=== PATIENT | female | born 1965 | race Caucasian/White ===

== ENCOUNTER 2019-03-14 08:57 | Inpatient (IN) ==
--- NOTE | 2019-02-08 12:02 | Anesthesiology Consultation ---
Date of Service February 08, 2019 Assessment & Plan (1) Encounter for pre-operative examination: - Check test AM DOS Chart Review Chart Review: Pending: Refer to Additional Notes / Consult section (pending p reop testing (labs, EKG, CXR)) and Patient seen in Pre Admission Testing Teaching & Discussion Pre-Anesthesia Teaching/Discussion Notes: Instructed NPO after midnight before surgery,except medications with 15 cc of water. Medication instructions provided according to the PAT guidelines. History Surgery Operation Date: 03/14/19 11:20 Proposed Procedures p Left Total Knee Arthroplasty - Dao Dobson MD Height/Weight Height: 5 ft 9 in Weight: 129.7 kg Allergies Allergy/AdvReac Type Severity Reaction Status Date / Time losartan Allergy Intermediate Rash Verified 02/05/19 15:41 Medications Home Medications Medication Instructions Recorded Confirmed Last Taken atorvastatin 10 mg PO HS 02/05/19 02/05/19 Unknown cholecalciferol (vitamin D3) 1,000 unit PO QAM 02/05/19 02/05/19 Unknown [Vitamin D3] diclofenac-misoprostol 1 tab PO TID PRN 02/05/19 02/05/19 Unknown famotidine 40 mg PO HS 02/05/19 02/05/19 Unknown hydrochlorothiazide 37.5 mg PO QAM 02/05/19 02/05/19 Unknown levothyroxine 75 mcg PO QAM 02/05/19 02/05/19 Unknown lisinopril 5 mg PO HS 02/05/19 02/05/19 Unknown potassium chloride 10 meq PO QAM 02/05/19 02/05/19 Unknown Past Medical History Medical History Deep vein thrombosis right leg s/p knee arthroscopy (2008)- AC x 6 months/no issues since Hyperlipidemia Hypertension Hypothyroidism Morbid obesity Osteoarthritis Pancreatitis hx 2010 prior to lap santos Exercise / Class Metabolic Activity II 4-5 Yardwork/Stairs/Walk up hill Past Family History Family History Other No family history of adverse response to anesthesia Past Surgical History Surgical History H/O partial thyroidectomy History of cholecystectomy History of colonoscopy History of dilatation and curettage History of esophagogastroduodenoscopy (EGD) History of tonsillectomy History of total knee replacement Right S/P right knee arthroscopy Past Anesthesia History No Hx of Anesthesia Complications and No Family Hx of Anesthesia Complications History of PONV No Hx of PONV and Hx of Motion Sickness (mild) Social History Smoking Status: Never smoker Do You Dip or Chew Tobacco: No Hx Alcohol Use: Yes Alcohol type: beer alcohol intake frequency: holidays/special occasions only Hx Substance Use: No substance use type: does not use Review of Systems Patient denies chest pain, shortness of breath, dyspnea on exertion, cough, wheezing, palpitations. Physical Exam Vital Signs VITALS BP 122/76 P 65 TEMP 98.0 SP02 96%RA RESP 20 PHYSICAL Full neck and c-spine range of motion. Full TMJ range of motion. TMD 4 finger breaths Mallampati Score 2 Dentition: intact Lungs: clear throughout to auscultation Cardiac: regular rate and rhythm, no murmurs noted Spine: normal Carotid arteries: negative bruit Extremities: no edema
--- NOTE | 2019-02-08 12:15 | PAT Medication Instructions ---
Medication Instructions Date of Service February 08, 2019 Home Medications Medications atorvastatin 10 mg PO HS 02/05/19 [History Confirmed 02/05/19] cholecalciferol (vitamin D3) [Vitamin D3] 1,000 unit PO QAM 02/05/19 [History Confirmed 02/05/19] diclofenac-misoprostol 1 tab PO TID PRN 02/05/19 [History Confirmed 02/05/19] famotidine 40 mg PO HS 02/05/19 [History Confirmed 02/05/19] hydrochlorothiazide 37.5 mg PO QAM 02/05/19 [History Confirmed 02/05/19] levothyroxine 75 mcg PO QAM 02/05/19 [History Confirmed 02/05/19] lisinopril 5 mg PO HS 02/05/19 [History Confirmed 02/05/19] potassium chloride 10 meq PO QAM 02/05/19 [History Confirmed 02/05/19] ASK your surgeon for instructions diclofenac-misoprostol 1 tab PO TID PRN 02/05/19 [History Confirmed 02/05/19] DO NOT take the morning of surgery cholecalciferol (vitamin D3) [Vitamin D3] 1,000 unit PO QAM 02/05/19 [History Confirmed 02/05/19] hydrochlorothiazide 37.5 mg PO QAM 02/05/19 [History Confirmed 02/05/19] potassium chloride 10 meq PO QAM 02/05/19 [History Confirmed 02/05/19] Take morning of surgery With a small sip of water, OTHERWISE NOTHING TO EAT OR DRINK AFTER MIDNIGHT: levothyroxine 75 mcg PO QAM 02/05/19 [History Confirmed 02/05/19] Take evening before surgery atorvastatin 10 mg PO HS 02/05/19 [History Confirmed 02/05/19] famotidine 40 mg PO HS 02/05/19 [History Confirmed 02/05/19] lisinopril 5 mg PO HS 02/05/19 [History Confirmed 02/05/19] Other Notes If you have any questions please call us at [phone] or [phone] or [phone] or [phone]
[2019-02-08 12:39] LABS: Basophils # (auto) 0.02 K/uL (0-0.2); Basophils % (auto) 0.2 %; Eosinophils # (auto) 0.39 K/uL (0-0.5); Eosinophils % (auto) 4.6 %; Hematocrit (blood only) 38.6 % (37-47); Hemoglobin 12.9 g/dL (12.0-16.0); Immature Granulocytes # (auto) 0.01 K/uL (0.00-0.02); Immature Granulocytes % (auto) 0.1 %; Lymphocytes # (auto) 2.11 K/uL (1.2-3.4); Mean Corpuscular Hemoglobin 29.3 pg (25-34); Mean Corpuscular Hgb Conc 33.4 g/dL (32-36); Mean Corpuscular Volume 87.7 fL (80-100); Mean Platelet Volume 10.3 fL (7.4-10.4); Monocytes # (auto) 0.66 K/uL (0.11-0.59); Monocytes % (auto) 7.8 %; Neutrophils # (auto) 5.26 K/uL (1.4-6.5); Neutrophils % (auto) 62.3 %; Platelet Count 251 K/uL (130-400); RDW Coefficient of Variation 13.9 % (11.5-14.5); White Blood Count 8.45 K/uL (4.8-10.8)
[2019-02-08 12:44] LABS: Appearance Urine Clear (Clear); Bacteria Urine Automated Negative (Negative); Bilirubin Urine Negative (Negative); Blood Urine Negative (Negative); Cast Urine Automated 0 /lpf (0-5); Color Urine Yellow; Epithelial Cell Urine Auto >30 /lpf (0-5); Glucose Urine UA Negative (Negative); Ketones Urine Negative (Negative); Leukocyte Esterase Urine Trace (Negative); Nitrite Urine Negative (Negative); Protein Urine Negative (Negative); RBC Urine Automated 0-4 /hpf (0-4); Specific Gravity Urine 1.017 (1.000-1.030); Urobilinogen Urine Negative (Negative); pH Urine 5.5 (4.5-7.5)
[2019-02-08 12:49] LABS: Partial Thromboplastin Ratio 0.9; Partial Thromboplastin Time 23.9 Seconds (21.0-31.0); Prothrombin Time 10.2 Seconds (9.0-12.0)
[2019-02-08 13:07] LABS: Estimated Average Glucose 137 mg/dl; Hemoglobin A1C 6.4 % (4.5-5.6)
--- NOTE | 2019-02-08 13:20 | XRay Report ---
TWO VIEW CHEST CLINICAL HISTORY: Preoperative examination. FINDINGS: PA and lateral chest radiographs are compared to study dated 07/18/2010. The heart is mildly enlarged. The pulmonary vasculature is noncongested. The lungs and pleural spaces are clear. There i s no pneumothorax. The skeletal structures are osteopenic. Degenerative changes noted throughout the thoracic spine. The bony thorax appears intact. Surgical clips are noted in the upper abdomen. IMPRESSION: No active disease in the chest. Electronically signed by: Jas Santana M.D. 02/08/2019 1:19 PM
[2019-02-08 14:32] LABS: Albumin Level 3.7 gm/dl (3.4-5.0); Calcium 9.5 mg/dl (8.5-10.1); Creatinine Clr Calc Pharmacy 103.3 ml/min; Est GFR (African American) 84.6; Potassium 4.1 mmol/L (3.5-5.1)
--- NOTE | 2019-03-13 22:46 | History and Physical Report ---
DATE OF ADMISSION: 03/14/2019 CHIEF COMPLAINT: Chronic left knee pain. HISTORY OF PRESENT ILLNESS: This is a 53-year-old female patient of Dr. Dobson'garett complaining of chronic left knee pain, longstanding, now progressively getting worse. The patient has failed conservative treatment including anti-inflammatories, the use of a brace. She has been diagnosed with end-stage osteoarthritis per clinical and radiographic exams. The patient has increased pain with weightbearing activities and her pain does interfere with her activities of daily living. The patient wished to proceed with a left total knee arthroplasty. PAST MEDICAL HISTORY: Hypertension, hypercholesterolemia, hypothyroidism, history of blood clots, osteoarthritis and obesity. SOCIAL HISTORY: Nonsmoker. Occasional drinker. PAST SURGICAL HISTORY: Tonsillectomy, thyroidectomy, cholecystectomy and right knee replacement. FAMILY HISTORY: Noncontributory. REVIEW OF SYSTEMS: Chronic left knee pain and instability. Otherwise, denies any shortness of breath, chest pain, nausea, vomiting or any other complaints. MEDICATIONS: Atorvastatin 10 mg daily, famotidine 40 mg daily, hydrochlorothiazide 25 mg daily, Tirosint 75 mcg daily, lisinopril 5 mg daily, Meloxicam 7.5 mg daily, potassium chloride 10 mEq 2 capsules daily and vitamin D3 1000 units daily. ALLERGIES: INCLUDE LOSARTAN. PHYSICAL EXAMINATION: GENERAL: Well-developed, well-nourished 53-year-old female, in no acute distress. She is alert and oriented x3 and pleasant. HEENT: Normocephalic and atraumatic. Extraocular motions are intact. Pupils are equal and reactive to light. HEART: Regular rate and rhythm. No murmurs. LUNGS: Clear. ABDOMEN: Soft and nontender. Bowel sounds present. EXTREMITIES: Left knee limited range of motion of 0-150 degrees. She has a varus deformity with medial joint line tenderness. She has a positive effusion with crepitation with passive range of motion. She has 5/5 strength with pain. NEUROLOGIC: Neurovascularly, she is intact in her left lower extremity. DIAGNOSES: Left knee end-stage osteoarthritis, hypertension, hypercholesterolemia, hypothyroidism, history of blood clots, osteoarthritis and obesity. PLAN: The patient was advised of her diagnosis. Indications, risks, benefits and postoperative course have all been reviewed. The patient wished to proceed with a left total knee arthroplasty. Necessary consent forms and preoperative testing clearances will be obtained.
[~2019-03-14 08:57] MED LIST: ACETAMINOPHEN 500 MG TAB PO SCH; BUPIVACAINE 0.5 % 5 MG/1 ML PF 10ML VIAL ONE; CEFAZOLIN 2000MG 2,000 MG/15 ML SYR IV SCH; CEFAZOLIN 3000MG 72.5 ML IV SCH; CeleBREX 200 MG CAP PO SCH; FAMOTIDINE 20 MG TAB PO SCH; GABAPENTIN 600 MG DOSE PO SCH; LR 500ML BOLUS, THEN 15ML/HR IV SCH; METOCLOPRAMIDE HCL 10 MG TABLET PO SCH; MIDAZOLAM HCL 1 MG/ML 2ML VIAL ONE; ROPIVACAINE 0.5% 5 MG/ML 30 ML VIAL ONE; ROPIVACAINE 0.5% HCL/PF 150 MG, BUPIVACAINE 0.5% MPF 30 ML, EPINEPHrine 30MG/30ML (OR U... INFIL SCH; dexAMETHasone 4 MG TAB PO SCH; fentaNYL citrate 100 MCG/2 ML VIAL ONE
--- NOTE | 2019-03-14 09:40 | History & Physical Bridge Note ---
Date of Service March 14, 2019 History & Physical Bridge Note I have examined the patient, reviewed the History & Physical and in the interval since the performance of the History & Physical I have noted the following changes of clinical significance: no changes noted
[2019-03-14] MEDS ORDERED: BACITRACIN INJ 50,000 UNIT VIAL ONE (10:02)
[2019-03-14] MEDS ORDERED: ORTHO JOINT ANESTHETIC ONE (10:02)
[2019-03-14 10:06] LABS: Pregnancy Test, Serum Negative (Negative)
[2019-03-14] MEDS ORDERED: MIDAZOLAM HCL 1 MG/ML 2ML VIAL ONE (11:59)
[2019-03-14] MEDS ORDERED: ePHEDrine sulfate 50 MG/ML AMP IV PRN (12:15)
[2019-03-14] MEDS ORDERED: KETOROLAC 30 MG/ML VIAL IV PRN (12:15)
[2019-03-14] MEDS ORDERED: ONDANSETRON INJ 2 MG/ML 2 ML VIAL IV PRN ×2 (12:15→15:18)
[2019-03-14] MEDS ORDERED: ATROPINE SULFATE 0.1 MG/ML 10ML SYR IV PRN (12:15)
[2019-03-14] MEDS ORDERED: HYDROmorphone INJ 1 MG/ML SYRINGE IV PRN (12:15)
[2019-03-14] MEDS ORDERED: DEXAMETHASONE SOD INJ 4 MG/ML VIAL ONE (12:41)
[2019-03-14] MEDS ORDERED: ONDANSETRON INJ 2 MG/ML 2 ML VIAL ONE (12:41)
[2019-03-14] MEDS ORDERED: PROPOFOL IV EMULSION 10 MG/ML 20 ML VIAL IV ONE (12:41)
[2019-03-14] MEDS ORDERED: MoRPHine SULFATE 2 MG/ML CARP ONE (13:00)
[2019-03-14] MEDS ORDERED: KETAMINE HCL INJ 50 MG/ML 10 ML VIAL ONE (13:11)
--- NOTE | 2019-03-14 13:40 | Post Operative Brief Note ---
Immediate Post Op Note v1 Date of Surgery March 14, 2019 Pre & Post Diagnosis Operation Date: 03/14/19 11:40 Pre-Op Diagnosis: Left Knee Osteoarthritis, obesity BMI 42.4 Post-Op Diagnosis: Left Knee Osteoarthritis, obesity BMI 42.4 I identified the patient and participated in the time-out.: Yes Procedure Operation Date: 03/14/19 11:40 Actual Procedures p Left Total Knee Arthroplasty, Cemented(Left), increased difficulty BMI 42.4- Dao Dobson MD Surgeon Dao Dobson MD [employer] Aircrew[employer] Berry YOUNG Estimated Blood Loss 5 Findings Consistent with Post-Op Diagnosis Specimens Bone cuts Drains Hemovac Drain Anesthesia Type MAC Spinal Regional Complications none Disposition Accompanied Patient To Recovery: No Disposition: Recovery Room Overlapping Procedure I was present for: the critical portions of procedure.
--- NOTE | 2019-03-14 14:42 | XRay Report ---
XR knee LT 1 or 2V routine HISTORY: 53 years-old Female Surgical Post Op left knee total joint arthroplasty COMPARISON: None available TECHNIQUE: 2 views of the left knee FINDINGS: Left knee total joint arthroplasty and patellar resurfacing. Satisfactory alignment without acute fra cture, dislocation or opaque foreign body. Anterior midline skin gee are noted along with expecte d postsurgical soft tissue swelling and deep tissue air. Surgical drainage catheter. IMPRESSION: Satisfactory alignment of the left knee total joint arthroplasty. The above report was generated using voice recognition software. It may contain grammatical, syntax o r spelling errors. Electronically signed by: Kentrell Connolly M.D. 03/14/2019 2:41 PM
[2019-03-14] MEDS ORDERED: HYDROmorphone INJ 0.5 MG/0.5 ML SYR IV PRN (15:18)
[2019-03-14] MEDS ORDERED: MAGNESIUM HYDROXIDE SUSP 30 ML UDC PO PRN (15:18)
[2019-03-14] MEDS ORDERED: SODIUM CHLORIDE 0.9% 1000ML 1,000 ML IV SCH (15:18)
[2019-03-14] MEDS ORDERED: NALOXONE HCL 0.4 MG/1 ML VIAL/CARP IV PRN (15:18)
[2019-03-14] MEDS ORDERED: BISACODYL 10 MG SUPP PR PRN (15:18)
[2019-03-14] MEDS: ACETAMINOPHEN 500 MG TAB PO SCH ×2 (16:21→22:55)
--- NOTE | 2019-03-14 17:24 | Hospitalist Consultation ---
Date of Consultation March 14, 2019 Assessment & Plan (1) Left knee DJD: S/p left TKA with Dr. Dobson on 03/14 without complications. - Pain control and post-op care per primary team (2) Hypertension: BP presently 130/75 post-op. - Continue home meds (3) Hypothyroidism: No signs/symptoms of hypo-/hyperthyroidism. - Continue home Synthroid 75 mcg (4) Deep vein thrombosis: Prior DVT after a right knee surgery per notes. - On rivaroxaban DVT ppx dosing per primary team History of Present Illness Attending Physician: Dao Dobson MD History of Present Illness 53yo F w/ hx of HTN & hypothyroidism who presents for left TKA with Dr. Dobson on 03/14. No major complaints after surgery. She had failed conservative therapies. Feeling nauseated and a bit dizzy after her surgery. Reports no fevers/chills, chest pain, shortness of breath, abdominal pain, nausea, or vomiting. Allergies Allergy/AdvReac Type Severity Reaction Status Date / Time losartan Allergy Intermediate Rash Verified 03/14/19 09:20 Home Medications Home Medications Medication Instructions Recorded Confirmed Type atorvastatin 10 mg PO HS 02/05/19 03/14/19 History cholecalciferol (vitamin D3) 1,000 unit PO QAM 02/05/19 03/14/19 History [Vitamin D3] diclofenac-misoprostol 1 tab PO TID PRN 02/05/19 03/14/19 History famotidine 40 mg PO HS 02/05/19 03/14/19 History hydrochlorothiazide 37.5 mg PO QAM 02/05/19 03/14/19 History levothyroxine 75 mcg PO QAM 02/05/19 03/14/19 History lisinopril 5 mg PO HS 02/05/19 03/14/19 History potassium chloride 10 meq PO QAM 02/05/19 03/14/19 History Patient History Medical History (Updated 03/14/19 @ 17:21 by Anup Mayer MD) Deep vein thrombosis right leg s/p knee arthroscopy (2008)- AC x 6 months/no issues since Hyperlipidemia Hypertension Hypothyroidism Morbid obesity Osteoarthritis Pancreatitis hx 2010 prior to lap santos Surgical History H/O partial thyroidectomy History of cholecystectomy History of colonoscopy History of dilatation and curettage History of esophagogastroduodenoscopy (EGD) History of tonsillectomy History of total knee replacement Right S/P right knee arthroscopy Family History Other No family history of adverse response to anesthesia Social History Preferred Language: Tajik Communication Ability: Effective 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 Beliefs That Will Affect Care: None Current Living Situation: Spouse Other Information That Helps Us Care for You: No Feels Safe at Home: Yes Safety Concerns: Feels Safe At This Time Smoking Status: Never smoker Do You Dip or Chew Tobacco: No ; Second Hand Exposure: Yes (hx as a child) ; Tobacco Cessation Education Requested by Patient: No Hx Alcohol Use: Yes Alcohol type: beer Hx Substance Use: No Review of Systems Review of Systems: All systems reviewed & are unremarkable except as noted in HPI & below Physical Exam Constitutional: WD/WN, vitals as above Eyes: EOM intact bilaterally; no conjunctival abnormality ENMT: external ear and nose normal, oropharynx normal Neck: trachea midline, no thyromegaly normal visual inspection Respiratory: normal respiratory effort, lungs clear to auscultation no respiratory distress Cardiovascular: RRR, no murmur, no edema Gastrointestinal (Abdomen): Inspection/Auscultation: abdomen normal to inspection; abdomen not distended Musculoskeletal: Left knee bandaged Skin: no rashes, warm and dry Neurologic: moves all extremities and awake Psychiatric: Orientation: alert, oriented to person and cooperative Results & Data Vital Signs (Past 12 Hours) Vital Signs Temp Pulse Pulse Resp BP BP Pulse Ox 03/14/19 17:17 36.3 C L 76 16 127/76 93 03/14/19 16:20 36.7 C 75 18 120/74 96 03/14/19 15:42 36.5 C 77 16 140/86 97 03/14/19 15:15 36.7 C 72 18 117/74 94 03/14/19 15:00 67 10 L 131/67 97 03/14/19 14:55 36.6 C 71 11 L 134/72 94 03/14/19 14:45 67 21 135/70 95 03/14/19 14:35 75 11 L 146/76 H 95 03/14/19 14:25 81 10 L 146/79 H 92 03/14/19 14:15 81 12 139/80 94 03/14/19 14:09 37.2 C 85 14 147/81 H 93 03/14/19 09:54 36.4 C L 70 18 138/86 98 PG Care Time/CCT Total # of Minutes Spent Total Time Spent with Patient: Total time spent is greater than 50% in coordination of care (as documented) at patient's floor/unit and/or counseling patient:
--- NOTE | 2019-03-14 17:24 | Operative Report ---
Post Operative Report Pre & Post Diagnosis Operation Date: 03/14/19 11:40 Pre-Op Diagnosis: Left Knee Osteoarthritis, obesity BMI 42.4 Post-Op Diagnosis: Left Knee Osteoarthritis, obesity BMI 42.4 I identified the patient and participated in the time-out.: Yes Procedure Operation Date: 03/14/19 11:40 Actual Procedures p Left Total Knee Arthroplasty, Cemented(Left), increased difficulty obesity BMI 42.4- Dao Dobson MD Surgeon Dao Dobson MD Forest And Conservation Worker Berry YOUNG Estimated Blood Loss 5 Findings Consistent with Post-Op Diagnosis Specimens Bone cuts Drains 2 Hemovac Anesthesia Type MAC Spinal Regional Complications none Disposition Accompanied Patient To Recovery: No Disposition: Recovery Room Indications 53-year female progressive osteoarthritis left knee failed conservative management. Patient has advanced patellofemoral OA medial compartment OA varus knee. Patient also obesity BMI 42.4. Patient had previous right knee replacem ent in the past. Description of Procedure Patient taken to the operating room placed supine on the operating table and anesthetized under spinal MAC regional anesthesia. Exam under anesthesia demonstrated good range of motion obese thigh obese leg no instability, crepitation with range of motion. A pneumatic tourniquet was placed about the thigh of the obese left thigh of the lower extremity. The left lower extremity was prepped and draped in usual fashion. Leg was elevated exsanguinated with an Esmarch bandage and the pneumatic was raised to 350 mm mercury. An anterior incision was made across the left knee. The skin was incised longitudinally subcutaneous flaps were elevated and an incision was made through the medial retinaculum extending up into the mid third of the quadriceps tendon and extended down to the medial tibial tubercle. Intra-articular findings demonstrated [id number] in the medial patellofemoral joint with bridging of the patella and eburnated bone medial facet area. Grade 4 medial compartment OA with a varus knee.. The knee was exposed by excising the infrapatellar fat pad, excising the meniscal remnants and anterior cruciate ligament. Any inflamed synovial tissue was resected. The fat pad over the anterior femur was resected for placement of the component in that area. The lateral synovial bands were release. Appropriate releases were performed to balance ligaments. The femur was exposed. The drill hole was made into the femur and the guidewire was placed and the distal femoral cutting block was applied. The standard distal cut was made at 5 degree valgus cut. The distal femoral cut was made with the oscillating saw. Sizing guide was applied. Size 7 was chosen. The size 7 4-in-1 cutting block was placed. The anterior and posterior chamfer cuts were made. The knee was extended and a subperiosteal peel lateral release was performed around the patella. The patella width was measured and width was reproduced using freehand cut technique. The 32 x 8.5 millimeter symmetrical patella was used. 3 drill holes are made for the pegs. The tibia was exposed. A custom tibial cutting block was positioned and drill holes were made for the cutting guide. Cutting guide was placed and the proximal cut was made with the oscillating saw. All osteophytes were resected. The lamina sports activities foul judge was used to assess ligamentous balance and the ligaments were balanced in extension and flexion. The tibia was reexposed and measured for a size E tibial component. This was externally rotated in line with the tibial tubercle and the fixation pins were drilled. The proximal tibia was fashioned with the drill and punch. The size 7 CR femoral trial was inserted. The trial MC inserts were used. The 16 mm insert gave balanced ligaments through full range of motion. The patella tracked centrally. the trials were removed. The orthomix anesthetic cocktail was injected per protocol. The knee was then copiously irrigated with pulsatile lavage antibiotic solution with bacitracin. The final components were cemented with Simplex cement. The final components were 7 CR left standard femur [employer] persona, E tibia, 16 MC polyethylene, 32 x 8.5 patella. While the cement cured with the knee in full extension the Betadine soak was used per protocol. After the cement cured, the knee joint was copiously irrigated with antibiotic solution with bacitracin. 2 drains were brought out laterally and connected to a Hemovac. The quadriceps tendon and medial retinaculum were closed with interrupted [id number] #1 Vicryl sutures. The knee was taken through a full range of motion and repair was secure. The subcutaneous tissues were closed with 2-0 Vicryl sutures and skin was closed with gee. Sterile dressings were applied and the patient tolerated the procedure well. Berry YOUNG my physician reference library assistant, assisted in soft tissue retraction instrument management leg positioning the closure and will participate in the postoperative care of the patient. I attest to the content of the Intraoperative Record and any orders documented therein. Any exceptions are noted below.
[2019-03-14] MEDS: FAMOTIDINE 20 MG TAB PO SCH (20:31)
[2019-03-14] MEDS: CEFAZOLIN 2000MG 2,000 MG/15 ML SYR IV SCH (20:31)
[2019-03-14] MEDS: SENNA 8.6 MG TAB PO SCH (20:32)
[2019-03-14] MEDS: LISINOPRIL 5 MG TAB PO SCH (20:32)
[2019-03-14] MEDS: DOCUSATE SODIUM 100 MG CAP PO SCH (20:32)
[2019-03-14] MEDS: CeleBREX 200 MG CAP PO SCH (20:32)
[2019-03-14] MEDS: ATORVASTATIN 10 MG TAB PO SCH (20:32)
[2019-03-15] MEDS: CEFAZOLIN 2000MG 2,000 MG/15 ML SYR IV SCH (03:29)
[2019-03-15 05:55] LABS: Hematocrit (blood only) 33.7 % (37-47); Hemoglobin 11.1 g/dL (12.0-16.0); Mean Corpuscular Hemoglobin 29.3 pg (25-34); Mean Corpuscular Hgb Conc 32.9 g/dL (32-36); Mean Corpuscular Volume 88.9 fL (80-100); Platelet Count 225 K/uL (130-400); RDW Coefficient of Variation 13.8 % (11.5-14.5); RDW Standard Deviation 45.1 fL (36.4-46.3); Red Blood Count 3.79 M/uL (4.2-5.4); White Blood Count 15.75 K/uL (4.8-10.8)
[2019-03-15 06:27] LABS: BUN Creatinine Ratio 17.3 (10-20); Creatinine Clr Calc Pharmacy 81.6 ml/min; Est GFR (African American) 63.4; Est GFR (Non-African American) 54.7
[2019-03-15] MEDS: ACETAMINOPHEN 500 MG TAB PO SCH ×2 (07:29→15:48)
[2019-03-15] MEDS: LEVOTHYROXINE SODIUM 75 MCG TABLET PO SCH (07:29)
--- NOTE | 2019-03-15 08:08 | Anesthesiology Progress Note ---
Date of Service March 15, 2019 Anesthesia Post Procedure Vital Signs Vital Signs: Temp Pulse Pulse Resp BP BP Pulse Ox 03/15/19 07:40 36.7 C 63 15 111/70 94 03/15/19 03:21 36.6 C 71 16 114/68 93 03/14/19 23:29 36.8 C 62 16 113/67 92 03/14/19 21:20 36.6 C 77 16 102/65 91 03/14/19 18:39 127/78 03/14/19 18:17 36.6 C 85 17 96/62 L 93 03/14/19 17:17 36.3 C L 76 16 127/76 93 03/14/19 16:20 36.7 C 75 18 120/74 96 03/14/19 15:42 36.5 C 77 16 140/86 97 03/14/19 15:15 36.7 C 72 18 117/74 94 03/14/19 15:00 67 10 L 131/67 97 03/14/19 14:55 36.6 C 71 11 L 134/72 94 03/14/19 14:45 67 21 135/70 95 03/14/19 14:35 75 11 L 146/76 H 95 03/14/19 14:25 81 10 L 146/79 H 92 03/14/19 14:15 81 12 139/80 94 03/14/19 14:09 37.2 C 85 14 147/81 H 93 03/14/19 09:54 36.4 C L 70 18 138/86 98 Pain Intensity Medial Back: Pain Intensity: 5 Left Knee: Pain Intensity: 4 Notes Mental Status: alert / awake / arousable and participated in evaluation Nausea / Vomiting: adequately controlled Pain: adequately controlled Airway Patency, RR, SpO2: stable & adequate BP & HR: stable & adequate Hydration State: stable & adequate Anesthetic Complications: no major complications apparent and Pt Satisfied with anesthetic care
--- NOTE | 2019-03-15 08:21 | Orthopedic Progress Note ---
Date of Service March 15, 2019 Assessment & Plan (1) Left knee DJD: POD #1, Left TKA PT/ OT DVT proph- Xarelto D/C plans- Home w OPPT As per medicine. Subjective POD #1, doing well. Denies SOB, CP, N/V. Pain controlled well. Wishes for OPPT. Physical Exam Physical Exam: Left knee dressings c/d/i, no drainage, drain in tact. Toes/ ankle mobile. No calf tenderness. A&Ox3. Results & Data Vital Signs (Past 12 Hours) Vital Signs Temp Pulse Pulse Resp BP BP Pulse Ox 03/15/19 07:40 36.7 C 63 15 111/70 94 03/15/19 03:21 36.6 C 71 16 114/68 93 03/14/19 23:29 36.8 C 62 16 113/67 92 03/14/19 21:20 36.6 C 77 16 102/65 91
[2019-03-15] MEDS: CeleBREX 200 MG CAP PO SCH ×2 (09:30→21:01)
[2019-03-15] MEDS: DOCUSATE SODIUM 100 MG CAP PO SCH ×2 (09:30→21:00)
[2019-03-15] MEDS: hydroCHLOROthiazide 25 MG TAB PO SCH (09:31)
[2019-03-15] MEDS: MULTIVITAMIN TAB PO SCH (09:34)
[2019-03-15] MEDS: POTASSIUM CHLORIDE 10 MEQ TABCR PO SCH (09:34)
[2019-03-15] MEDS: RIVAROXABAN 10 MG TABLET PO SCH (09:35)
[2019-03-15] MEDS: CHOLECALCIFEROL 1,000 UNITS TAB PO SCH (09:35)
[2019-03-15] MEDS: OXYCODONE HCL IR 5 MG TAB (IMMEDIATE RELEASE) PO PRN ×2 (14:26→21:12)
--- NOTE | 2019-03-15 15:09 | Hospitalist Progress Note ---
Date of Service March 15, 2019 Assessment & Plan (1) Left knee DJD: S/p left TKA with Dr. Dobson on 03/14 without complications. - Pain control and post-op care per primary team (2) Leukocytosis: Mild increase to 15 today. Likely stress-reaction to surgery. No focal infectious complaints. No fever. - Recheck tomorrow (3) Hypertension: BP presently 120/65. - Continue home meds (4) Hypothyroidism: No signs/symptoms of hypo-/hyperthyroidism. - Continue home Synthroid 75 mcg (5) Deep vein thrombosis: Prior DVT after a right knee surgery per notes. - On rivaroxaban DVT ppx dosing per primary team Given medical stability, Hospital Medicine team will sign off. Please re-consult with any questions or concerns. Thank you for letting us assist in the care of this patient! Subjective Feels very well today. No pain. No lightheadedness. Nausea and dizziness from last evening are resolved. Reports no fevers/chills, chest pain, shortness of breath, abdominal pain, nausea, or vomiting. Physical Exam Constitutional: WD/WN, vitals as above Eyes: EOM intact bilaterally; no conjunctival abnormality ENMT: external ear and nose normal, oropharynx normal Neck: trachea midline, no thyromegaly normal visual inspection Respiratory: normal respiratory effort, lungs clear to auscultation no respiratory distress Cardiovascular: RRR, no murmur, no edema Gastrointestinal (Abdomen): Inspection/Auscultation: abdomen normal to inspection; abdomen not distended Musculoskeletal: Left knee in bandage. Skin: no rashes, warm and dry Neurologic: moves all extremities and awake Psychiatric: Orientation: alert, oriented to person and cooperative Results & Data Vital Signs (Past 12 Hours) Vital Signs Temp Pulse Pulse Resp BP Pulse Ox 03/15/19 13:02 95 03/15/19 12:13 36.6 C 65 16 119/66 95 03/15/19 07:40 36.7 C 63 15 111/70 94 03/15/19 03:21 36.6 C 71 16 114/68 93 PG Care Time/CCT Total # of Minutes Spent Total Time Spent with Patient: Total time spent is greater than 50% in coordination of care (as documented) at patient's floor/unit and/or counseling patient:
[2019-03-15] MEDS: FAMOTIDINE 20 MG TAB PO SCH (21:00)
[2019-03-15] MEDS: ATORVASTATIN 10 MG TAB PO SCH (21:00)
[2019-03-15] MEDS: LISINOPRIL 5 MG TAB PO SCH (21:00)
[2019-03-15] MEDS: SENNA 8.6 MG TAB PO SCH (21:01)
[2019-03-16] MEDS: ACETAMINOPHEN 500 MG TAB PO SCH ×2 (00:01→07:24)
[2019-03-16] MEDS: LEVOTHYROXINE SODIUM 75 MCG TABLET PO SCH (05:30)
[2019-03-16] MEDS: OXYCODONE HCL IR 5 MG TAB (IMMEDIATE RELEASE) PO PRN ×3 (05:30→13:48)
[2019-03-16 05:46] LABS: Hematocrit (blood only) 33.1 % (37-47); Hemoglobin 10.8 g/dL (12.0-16.0); Mean Corpuscular Hemoglobin 29.3 pg (25-34); Mean Corpuscular Hgb Conc 32.6 g/dL (32-36); Mean Corpuscular Volume 89.7 fL (80-100); Mean Platelet Volume 11.2 fL (7.4-10.4); Platelet Count 207 K/uL (130-400); RDW Coefficient of Variation 14.3 % (11.5-14.5); RDW Standard Deviation 47.4 fL (36.4-46.3); Red Blood Count 3.69 M/uL (4.2-5.4); White Blood Count 9.93 K/uL (4.8-10.8)
[2019-03-16 06:16] LABS: BUN Creatinine Ratio 22.6 (10-20); Calcium 8.7 mg/dl (8.5-10.1); Creatinine Clr Calc Pharmacy 91.2 ml/min; Est GFR (African American) 72.6; Est GFR (Non-African American) 62.6; Potassium 3.9 mmol/L (3.5-5.1)
[2019-03-16] MEDS: RIVAROXABAN 10 MG TABLET PO SCH (07:23)
[2019-03-16] MEDS: POTASSIUM CHLORIDE 10 MEQ TABCR PO SCH (07:23)
[2019-03-16] MEDS: CHOLECALCIFEROL 1,000 UNITS TAB PO SCH (07:24)
[2019-03-16] MEDS: DOCUSATE SODIUM 100 MG CAP PO SCH (07:24)
[2019-03-16] MEDS: CeleBREX 200 MG CAP PO SCH (07:24)
[2019-03-16] MEDS: hydroCHLOROthiazide 25 MG TAB PO SCH (07:25)
[2019-03-16] MEDS: MULTIVITAMIN TAB PO SCH (07:25)
--- NOTE | 2019-03-16 08:21 | Orthopedic Progress Note ---
Date of Service March 16, 2019 Assessment & Plan (1) Left knee DJD: POD #2, Left TKA PT/ OT DVT proph- Xarelto D/C plans- Home w OPPT later today. As per medicine. Subjective POD #2, doing well. Denies SOB, CP, N/V. Pain controlled well. Wishes for OPPT. No new complaints today. Physical Exam Constitutional: WD/WN, vitals as above well developed and well nourished; no acute distress Sitting comfortably in bed eating breakfast. Musculoskeletal: Knee: + surgical incision (left knee: Silverlon dressing in place.); knee normal to inspection, no deformity, no skin erythema, no ecchymosis and no surgical drain present Neurologic: normal touch/pain/proprioception Psychiatric: A+Ox3, euthymic affect Results & Data Vital Signs (Past 12 Hours) Vital Signs Temp Pulse Resp BP Pulse Ox 03/16/19 06:04 36.6 C 64 16 159/93 H 100 03/15/19 23:23 36.8 C 68 16 113/70 95
--- NOTE | 2019-03-25 18:01 | Discharge Summary ---
HISTORY OF PRESENT ILLNESS: This is a 53-year-old female patient of Dr. Dobson'garett complaining of chronic left knee pain, longstanding, now progressively getting worse. The patient failed conservative treatment and elected to proceed with a left total knee arthroplasty. PAST MEDICAL HISTORY: Hypertension, hypercholesterolemia, hypothyroidism, history of blood clots, osteoarthritis and obesity. POSTOPERATIVE COURSE: The patient underwent a left total knee arthroplasty on 03/14/2019. She was followed closely with medical consultation, physical therapy, pain control and DVT prophylaxis in the form of Xarelto. The patient did well postoperatively and was discharged home on postoperative day #2. PHYSICAL EXAMINATION: LEFT KNEE: Silverlon dressing was clean, dry and intact. There was no redness or drainage. She had no calf tenderness. Negative Homans sign. Toes and ankle were mobile. Neurologically and neurovascularly, she is intact in her left lower extremity. DIAGNOSES: Left knee total knee arthroplasty, hypertension, hypercholesterolemia, hypothyroidism, history of blood clots, osteoarthritis and obesity. PLAN: The patient was discussed discharge home with outpatient physical therapy on postoperative day #2. She will continue her preadmission medications with the addition of Xarelto for DVT prophylaxis and pain medications. The patient will follow up as scheduled as an outpatient.
== END 2019-03-16 14:27 | disposition home or self-care (01) | DRG 470 ==
LOC: ASU 08:57 → 3E 14:14